=== PATIENT | female | born 1980 | race Caucasian/White ===

== ENCOUNTER 2017-04-24 16:44 | Observation (INO) | payer OTHER ==
[2017-04-24 17:22] LABS: HEMOGLOBIN 11.6 gm/dl (12.3-15.3); RED BLOOD COUNT 3.75 M/UL (4.00-5.10); WHITE BLOOD COUNT 12.6 K/UL (4.5-11.0)
[2017-04-24 17:45] LABS: BUN/CREATININE RATIO 23 (0-10)
[2017-04-24] MEDS ORDERED: TRANDATE 200 M200 MG PO (19:50)
[2017-06-08] MEDS ORDERED: COLACE 100MG C100 MG PO (10:36)
== END 2017-04-24 19:43 | disposition home or self-care (01) ==
LOC: GENOP 16:44 → OB 17:03
PROVIDERS: ADMIT Obstetrics & Gynecology
DX: O10.93 Unspecified pre-existing hypertension complicating the puerperium (principal); O99.213 Obesity complicating pregnancy, third trimester; O99.333 Smoking (tobacco) complicating pregnancy, third trimester; F17.200 Nicotine dependence, unspecified, uncomplicated; Z3A.30 30 weeks gestation of pregnancy; Z79.899 Other long term (current) drug therapy
CPT/HCPCS: 36415; 80053; 81001; 83615; 84550; 85025; G0378; G0463